=== PATIENT | male | born 1965 | race Caucasian/White ===

== ENCOUNTER 2017-01-19 18:35 | Inpatient (IN) | payer MEDICAID, OTHER ==
[~2017-01-19] VITALS: Ht 167.6 cm; Wt 78.0 kg
[~2017-01-19 18:35] MED LIST: BACIO TP; DULO60CA44 PO; GABA400C PO; LURA40 PO; TRAZ-147 PO; Trazodone Hcl PO
[2017-01-19 21:08] LABS: BASOPHILS % (AUTO) 0.5 % (0.0-2.0); HEMATOCRIT 29.3 % (41-53); HEMOGLOBIN 9.4 g/dL (13.5-17.5); LYMPHOCYTES # (AUTO) 1.4 K/uL (1.0-4.8); MEAN CORPUSCULAR HEMOGLOBIN 25.5 pg (26.0-34.0); MEAN CORPUSCULAR HGB CONC 32.1 G/dL (31.0-37.0); MEAN CORPUSCULAR VOLUME 79 fL (80-100); MONOCYTES # (AUTO) 0.5 K/uL (0.1-1.0); MONOCYTES % (AUTO) 8.5 % (2.0-9.0); NEUTROPHILS # (AUTO) 3.7 K/uL (1.8-7.7); PLATELET COUNT (AUTO) 301 K/uL (150-450); RED CELL DISTRIBUTION WIDTH 17.4 % (11.5-14.5); WHITE BLOOD COUNT (AUTO) 5.9 K/uL (4.5-11.0)
[2017-01-19 21:11] LABS: ANION GAP 8 mmol/L (8-16); CALCIUM, TOTAL 8.5 mg/dL (8.8-10.5); CARBON DIOXIDE 26 mmol/L (22-29); CHLORIDE 107 mmol/L (98-107); CREATININE 0.93 mg/dL (0.60-1.30); GLOMERULAR FILTR. RATE CALC > 60 mL/min (>60); SODIUM SERUM 141 mmol/L (136-145); UREA NITROGEN, BLOOD 17 mg/dL (7-18)
[2017-01-19 21:17] LABS: ALANINE AMINOTRANSFERASE 39 U/L (12-78); ALBUMIN 3.5 g/dL (3.4-5.0); ASPARTATE AMINOTRANSFERASE 24 U/L (15-37); BILIRUBIN,TOTAL 0.4 mg/dL (0.1-1.0)
[2017-01-19] MEDS ORDERED: LORazepam 2 MG TABLET PO ONE (21:30)
[2017-01-19] MEDS ORDERED: QUEtiapine FUMARATE 100 MG TABLET PO ONE (21:30)
[2017-01-19] MEDS ORDERED: HALOPERIDOL 5 MG TABLET PO PRN (21:30)
[2017-01-19] MEDS ORDERED: ZOLPIDEM TARTRATE 10 MG TABLET PO PRN (21:30)
[2017-01-19] MEDS ORDERED: DiphenhydrAMINE HCL 25 MG CAPSULE PO ONE (21:30)
[2017-01-19 22:15] LABS: RBC MORPHOLOGY COMMENT ABNORMAL RBC MORPH
[2017-01-20 01:01] VITALS: BP 115/75
[2017-01-20 01:04] VITALS: BP 115/75
[2017-01-20 01:06] LABS: APPEARANCE,URINE CLEAR (CLEAR); GLUCOSE, URINE (UA) NEGATIVE (NEGATIVE); KETONES,URINE NEGATIVE (NEGATIVE); LEUKOCYTE ESTERASE ,URINE NEGATIVE (NEGATIVE); OCCULT BLOOD,URINE NEGATIVE (NEGATIVE); PH,URINE 5.5 (5.0-8.0); PROTEIN,URINE NEGATIVE (NEGATIVE)
[2017-01-20 01:08] LABS: ADD UA MICROSCOPIC NO
[2017-01-20] MEDS ORDERED: INFLUENZA VIRUS VACCINE QVS 2017-18 (3YR+)/PF 60 MCG/0.5 ML SYRINGE IM ONE (01:45)
[2017-01-20 06:12] LABS: HEMOGLOBIN A1C 6.4 % (4.5-6.2)
[2017-01-20 06:22] LABS: CHOL/HDL RATIO 6.3 (4.2-7.3)
[2017-01-20 08:00] VITALS: BP 150/80
[2017-01-20] MEDS ORDERED: DEXTROSE 50%-WATER 25 GM/50 ML SYRINGE IVP PRN (08:45)
[2017-01-20] MEDS: CEPHALEXIN MONOHYDRATE 500 MG CAPSULE PO SCH ×4 (08:46→20:31)
[2017-01-20] MEDS: LORazepam 2 MG TABLET PO PRN (08:46)
[2017-01-20 16:15] VITALS: BP 153/86
[2017-01-20 17:22] LABS: GLUCOSE,POINT OF CARE 115 MG/DL (70-110)
[2017-01-20] MEDS: QUEtiapine FUMARATE 200 MG TABLET PO SCH (20:31)
[2017-01-21 05:34] VITALS: BP 129/74
[2017-01-21 06:12] LABS: GLUCOSE,POINT OF CARE 96 MG/DL (70-110)
[2017-01-21] MEDS: INSULIN ASPART 100 UNITS/ML SQ PRN (07:01)
[2017-01-21] MEDS: MetFORMIN HCL 500 MG TABLET PO SCH (07:01)
[2017-01-21 08:26] VITALS: BP 139/70
[2017-01-21] MEDS: CEPHALEXIN MONOHYDRATE 500 MG CAPSULE PO SCH ×4 (08:36→20:41)
[2017-01-21] MEDS: OMEPRAZOLE 20 MG CAPSULE PO SCH (12:10)
[2017-01-21 16:40] VITALS: BP 132/76
[2017-01-21 17:33] LABS: GLUCOSE,POINT OF CARE 107 MG/DL (70-110)
[2017-01-21] MEDS: QUEtiapine FUMARATE 200 MG TABLET PO SCH (20:41)
[2017-01-22 05:39] LABS: GLUCOSE COMMENT 1 Received Meds; GLUCOSE,POINT OF CARE 99 MG/DL (70-110)
[2017-01-22] MEDS: MetFORMIN HCL 500 MG TABLET PO SCH (06:41)
[2017-01-22] MEDS: INSULIN ASPART 100 UNITS/ML SQ PRN (06:41)
[2017-01-22] MEDS: OMEPRAZOLE 20 MG CAPSULE PO SCH (09:13)
[2017-01-22] MEDS: CEPHALEXIN MONOHYDRATE 500 MG CAPSULE PO SCH ×4 (09:13→21:12)
[2017-01-22 10:29] VITALS: BP 122/75
[2017-01-22] MEDS: ACETAMINOPHEN 325 MG TABLET PO PRN (10:31)
[2017-01-22 16:24] VITALS: BP 130/84
[2017-01-22 17:12] LABS: GLUCOSE,POINT OF CARE 112 MG/DL (70-110)
[2017-01-22] MEDS: QUEtiapine FUMARATE 300 MG TABLET PO SCH (21:12)
[2017-01-23 05:39] VITALS: BP 111/66
[2017-01-23 06:28] LABS: GLUCOSE,POINT OF CARE 108 MG/DL (70-110)
[2017-01-23] MEDS: INSULIN ASPART 100 UNITS/ML SQ PRN (06:51)
[2017-01-23] MEDS: MetFORMIN HCL 500 MG TABLET PO SCH (07:10)
[2017-01-23 08:00] VITALS: BP 106/69
[2017-01-23] MEDS: OMEPRAZOLE 20 MG CAPSULE PO SCH (09:25)
[2017-01-23 17:18] LABS: GLUCOSE COMMENT 1 FASTING; GLUCOSE,POINT OF CARE 105 MG/DL (70-110)
[2017-01-23] MEDS: QUEtiapine FUMARATE 300 MG TABLET PO SCH (20:33)
[2017-01-23 21:53] VITALS: BP 112/68
[2017-01-24 05:48] LABS: GLUCOSE,POINT OF CARE 98 MG/DL (70-110)
[2017-01-24] MEDS: MetFORMIN HCL 500 MG TABLET PO SCH (06:53)
[2017-01-24 08:05] VITALS: BP 111/75
[2017-01-24] MEDS: OMEPRAZOLE 20 MG CAPSULE PO SCH (08:10)
[2017-01-24] MEDS: LORazepam 2 MG TABLET PO PRN (08:10)
[2017-01-24] MEDS: ACETAMINOPHEN 325 MG TABLET PO PRN (08:11)
[2017-01-24 16:18] LABS: GLUCOSE,POINT OF CARE 112 MG/DL (70-110)
[2017-01-24 16:37] VITALS: BP 124/86
[2017-01-24] MEDS: QUEtiapine FUMARATE 300 MG TABLET PO SCH (21:03)
[2017-01-25 06:22] LABS: GLUCOSE,POINT OF CARE 97 MG/DL (70-110)
[2017-01-25] MEDS: MetFORMIN HCL 500 MG TABLET PO SCH (07:03)
[2017-01-25] MEDS: OMEPRAZOLE 20 MG CAPSULE PO SCH (08:53)
[2017-01-25 09:30] VITALS: BP 122/77
[2017-01-25] MEDS: LORazepam 2 MG TABLET PO PRN ×2 (09:47→16:06)
[2017-01-25 16:19] VITALS: BP 137/89
[2017-01-25 16:38] LABS: GLUCOSE,POINT OF CARE 102 MG/DL (70-110)
[2017-01-25] MEDS: QUEtiapine FUMARATE 300 MG TABLET PO SCH (20:09)
[2017-01-26 06:43] LABS: GLUCOSE,POINT OF CARE 99 MG/DL (70-110)
[2017-01-26] MEDS: MetFORMIN HCL 500 MG TABLET PO SCH (06:54)
[2017-01-26 08:36] VITALS: BP 142/88
[2017-01-26] MEDS: OMEPRAZOLE 20 MG CAPSULE PO SCH (09:16)
[2017-01-26] MEDS: LORazepam 2 MG TABLET PO PRN ×2 (09:16→14:30)
[2017-01-26] MEDS: ACETAMINOPHEN 325 MG TABLET PO PRN (14:31)
[2017-01-26 16:13] VITALS: BP 129/78
[2017-01-26 16:13] LABS: GLUCOSE,POINT OF CARE 103 MG/DL (70-110)
[2017-01-26] MEDS: QUEtiapine FUMARATE 300 MG TABLET PO SCH (20:14)
[2017-01-27 00:50] VITALS: BP 102/72
[2017-01-27 06:22] LABS: GLUCOSE,POINT OF CARE 116 MG/DL (70-110)
[2017-01-27] MEDS: MetFORMIN HCL 500 MG TABLET PO SCH (07:01)
[2017-01-27 08:36] VITALS: BP 129/88
[2017-01-27] MEDS: OMEPRAZOLE 20 MG CAPSULE PO SCH (09:10)
[2017-01-27] MEDS: LORazepam 2 MG TABLET PO PRN (09:12)
[2017-01-27] MEDS: ACETAMINOPHEN 325 MG TABLET PO PRN (09:12)
[2017-01-27 09:21] VITALS: BP 129/84
[2017-01-27] MEDS ORDERED: METF500T4 PO (10:04)
[2017-01-27] MEDS ORDERED: OMEP20 PO (10:04)
[2017-01-27] MEDS ORDERED: QUET300T2 PO (10:05)
== END 2017-01-27 12:15 | disposition home or self-care (01) | DRG 750 ==
LOC: EMS 18:36 → 3EI 23:00
DX: F20.0 Paranoid schizophrenia (principal); E11.9 Type 2 diabetes mellitus without complications; F32.9 Major depressive disorder, single episode, unspecified; B19.20 Unspecified viral hepatitis C without hepatic coma; E78.5 Hyperlipidemia, unspecified; L03.113 Cellulitis of right upper limb; K21.9 Gastro-esophageal reflux disease without esophagitis; M19.90 Unspecified osteoarthritis, unspecified site; Z79.899 Other long term (current) drug therapy; Z88.8 Allergy status to other drugs, medicaments and biological substances; Z79.84 Long term (current) use of oral hypoglycemic drugs; Z87.891 Personal history of nicotine dependence; Z82.0 Family history of epilepsy and other diseases of the nervous system; Z82.49 Family history of ischemic heart disease and other diseases of the circulatory system; Z28.21 Immunization not carried out because of patient refusal
CPT/HCPCS: 82962; 83036; 99285; G0480

== ENCOUNTER 2017-02-10 10:47 | Inpatient (IN) | payer MEDICAID, OTHER ==
[~2017-02-10] VITALS: Ht 167.6 cm; Wt 76.7 kg
[~2017-02-10 10:47] MED LIST changes: -BACIO TP; -DULO60CA44 PO; -GABA400C PO; -LURA40 PO; +METF500T4 PO; +OMEP20 PO; +QUET300T2 PO; -TRAZ-147 PO; -Trazodone Hcl PO
[2017-02-10] MEDS ORDERED: OXYC-38 PO (10:52)
[2017-02-10] MEDS ORDERED: HALOPERIDOL 5 MG TABLET PO ONE (11:00)
[2017-02-10] MEDS ORDERED: LORazepam 2 MG TABLET PO ONE (11:00)
[2017-02-10 11:11] LABS: BASOPHILS # (AUTO) 0.03 K/uL (0.00-0.20); BASOPHILS % (AUTO) 0.4 % (0.0-2.0); EOSINOPHILS # (AUTO) 0.15 K/uL (0.00-0.70); EOSINOPHILS % (AUTO) 2.17 % (1.0-6.0); HEMATOCRIT 32.9 % (41-53); HEMOGLOBIN 10.5 g/dL (13.5-17.5); LYMPHOCYTES # (AUTO) 0.9 K/uL (1.0-4.8); LYMPHOCYTES % (AUTO) 13.7 % (22.0-44.0); MEAN CORPUSCULAR HEMOGLOBIN 25.4 pg (26.0-34.0); MEAN CORPUSCULAR HGB CONC 31.9 G/dL (31.0-37.0); MEAN CORPUSCULAR VOLUME 80 fL (80-100); MONOCYTES # (AUTO) 0.4 K/uL (0.1-1.0); MONOCYTES % (AUTO) 5.9 % (2.0-9.0); NEUTROPHILS # (AUTO) 5.3 K/uL (1.8-7.7); NEUTROPHILS % (AUTO) 77.8 % (40.0-70.0); PLATELET COUNT (AUTO) 384 K/uL (150-450); RED BLOOD CELL COUNT(AUTO) 4.13 MIL/uL (4.50-5.90); RED CELL DISTRIBUTION WIDTH 18.6 % (11.5-14.5); WHITE BLOOD COUNT (AUTO) 6.9 K/uL (4.5-11.0)
[2017-02-10 11:12] LABS: GLUCOSE,POINT OF CARE 121 MG/DL (70-110)
[2017-02-10 11:16] LABS: RBC MORPHOLOGY COMMENT ABNORMAL RBC MORPH
[2017-02-10 11:22] LABS: ANION GAP 6 mmol/L (8-16); CALCIUM, TOTAL 9.3 mg/dL (8.8-10.5); CARBON DIOXIDE 29 mmol/L (22-29); CHLORIDE 102 mmol/L (98-107); CREATININE 0.88 mg/dL (0.60-1.30); GLOMERULAR FILTR. RATE CALC > 60 mL/min (>60); POTASSIUM 4.1 mmol/L (3.5-5.1); SODIUM SERUM 137 mmol/L (136-145); UREA NITROGEN, BLOOD 10 mg/dL (7-18)
[2017-02-10 11:28] LABS: ALANINE AMINOTRANSFERASE 56 U/L (12-78); ALBUMIN 3.7 g/dL (3.4-5.0); ASPARTATE AMINOTRANSFERASE 37 U/L (15-37); BILIRUBIN,TOTAL 0.4 mg/dL (0.1-1.0); TOTAL PROTEIN, SERUM 7.5 g/dL (6.4-8.2)
[2017-02-10 13:14] VITALS: BP 132/89
[2017-02-10] MEDS ORDERED: DEXTROSE 50%-WATER 25 GM/50 ML SYRINGE IVP PRN (13:45)
[2017-02-10] MEDS ORDERED: INFLUENZA VIRUS VACCINE QVS 2017-18 (3YR+)/PF 60 MCG/0.5 ML SYRINGE IM ONE (14:15)
[2017-02-10 17:32] LABS: GLUCOSE,POINT OF CARE 123 MG/DL (70-110)
[2017-02-10 19:38] VITALS: BP 135/85
[2017-02-10] MEDS: QUEtiapine FUMARATE 300 MG TABLET PO SCH (21:14)
[2017-02-10] MEDS: ZOLPIDEM TARTRATE 10 MG TABLET PO PRN (21:32)
[2017-02-11 06:07] LABS: GLUCOSE,POINT OF CARE 111 MG/DL (70-110)
[2017-02-11] MEDS: HALOPERIDOL 5 MG TABLET PO PRN (07:52)
[2017-02-11] MEDS: LORazepam 2 MG TABLET PO PRN ×2 (07:52→17:12)
[2017-02-11 08:59] VITALS: BP 147/88
[2017-02-11 16:38] VITALS: BP 133/84
[2017-02-11 17:18] LABS: GLUCOSE,POINT OF CARE 113 MG/DL (70-110)
[2017-02-11] MEDS: QUEtiapine FUMARATE 300 MG TABLET PO SCH (21:03)
[2017-02-12 05:48] LABS: GLUCOSE COMMENT 1 Received Meds; GLUCOSE,POINT OF CARE 106 MG/DL (70-110)
[2017-02-12] MEDS: INSULIN ASPART 100 UNITS/ML SQ PRN (06:46)
[2017-02-12] MEDS: LORazepam 2 MG TABLET PO PRN ×2 (07:42→16:19)
[2017-02-12] MEDS: HALOPERIDOL 5 MG TABLET PO PRN (07:42)
[2017-02-12] MEDS: ACETAMINOPHEN 325 MG TABLET PO PRN (07:42)
[2017-02-12 08:38] VITALS: BP 108/71
[2017-02-12 08:42] VITALS: BP 108/71
[2017-02-12 16:22] LABS: GLUCOSE,POINT OF CARE 103 MG/DL (70-110)
[2017-02-12 16:42] VITALS: BP 110/75
[2017-02-12] MEDS: QUEtiapine FUMARATE 300 MG TABLET PO SCH (20:43)
[2017-02-12] MEDS: ZOLPIDEM TARTRATE 10 MG TABLET PO PRN (21:53)
[2017-02-13 06:22] LABS: GLUCOSE,POINT OF CARE 111 MG/DL (70-110)
[2017-02-13 08:30] VITALS: BP 131/83
[2017-02-13] MEDS: LORazepam 2 MG TABLET PO PRN ×3 (08:57→17:08)
[2017-02-13] MEDS: ACETAMINOPHEN 325 MG TABLET PO PRN (08:57)
[2017-02-13 16:00] VITALS: BP 137/91
[2017-02-13] MEDS: HALOPERIDOL 5 MG TABLET PO PRN (16:07)
[2017-02-13 16:13] LABS: GLUCOSE,POINT OF CARE 109 MG/DL (70-110)
[2017-02-13] MEDS: QUEtiapine FUMARATE 300 MG TABLET PO SCH (21:34)
[2017-02-14 05:58] LABS: GLUCOSE,POINT OF CARE 93 MG/DL (70-110)
[2017-02-14 08:10] VITALS: BP 125/78
[2017-02-14] MEDS: HALOPERIDOL 5 MG TABLET PO PRN ×2 (09:23→14:38)
[2017-02-14] MEDS: LORazepam 2 MG TABLET PO PRN ×2 (09:23→14:38)
[2017-02-14] MEDS: ARIPiprazole 10 MG TABLET PO SCH (11:12)
[2017-02-14] MEDS: ACETAMINOPHEN 325 MG TABLET PO PRN (14:11)
[2017-02-14] MEDS ORDERED: FLUTICASONE PROPIONATE 50 MCG/SPRAY 16 GM NASAL SPRAY NASAL PRN (14:15)
[2017-02-14 16:58] LABS: GLUCOSE,POINT OF CARE 114 MG/DL (70-110)
[2017-02-14 19:34] VITALS: BP 109/71
[2017-02-14] MEDS: QUEtiapine FUMARATE 300 MG TABLET PO SCH (21:02)
[2017-02-15 05:48] LABS: GLUCOSE,POINT OF CARE 108 MG/DL (70-110)
[2017-02-15] MEDS: ARIPiprazole 10 MG TABLET PO SCH (08:56)
[2017-02-15] MEDS: ACETAMINOPHEN 325 MG TABLET PO PRN (08:57)
[2017-02-15 09:20] VITALS: BP 113/79
[2017-02-15] MEDS: HALOPERIDOL 5 MG TABLET PO PRN ×2 (13:22→18:00)
[2017-02-15] MEDS: LORazepam 2 MG TABLET PO PRN ×2 (13:22→18:00)
[2017-02-15 16:32] LABS: GLUCOSE,POINT OF CARE 92 MG/DL (70-110)
[2017-02-15 16:46] VITALS: BP 116/72
[2017-02-15] MEDS: QUEtiapine FUMARATE 300 MG TABLET PO SCH (21:13)
[2017-02-16 02:45] VITALS: BP 136/89
[2017-02-16 05:58] LABS: GLUCOSE,POINT OF CARE 103 MG/DL (70-110)
[2017-02-16] MEDS: INSULIN ASPART 100 UNITS/ML SQ PRN (06:47)
[2017-02-16] MEDS: LORazepam 2 MG TABLET PO PRN (08:21)
[2017-02-16] MEDS: ARIPiprazole 10 MG TABLET PO SCH (08:21)
[2017-02-16 08:41] VITALS: BP 125/92
[2017-02-16] MEDS ORDERED: ARIP10TA8 PO (08:56)
== END 2017-02-16 10:20 | disposition home or self-care (01) | DRG 750 ==
LOC: EMS 10:49 → 3EI 12:19
DX: F20.0 Paranoid schizophrenia (principal); R45.851 Suicidal ideations; Q78.0 Osteogenesis imperfecta; E11.9 Type 2 diabetes mellitus without complications; B19.20 Unspecified viral hepatitis C without hepatic coma; D64.9 Anemia, unspecified; K21.9 Gastro-esophageal reflux disease without esophagitis; M19.90 Unspecified osteoarthritis, unspecified site; M54.9 Dorsalgia, unspecified; Z87.891 Personal history of nicotine dependence; Z88.6 Allergy status to analgesic agent; Z79.899 Other long term (current) drug therapy; Z82.0 Family history of epilepsy and other diseases of the nervous system; Z82.49 Family history of ischemic heart disease and other diseases of the circulatory system
CPT/HCPCS: 82962; 83036; 87081; 99285; G0480

== ENCOUNTER 2017-02-17 23:17 | Inpatient (IN) | payer MEDICAID ==
[~2017-02-17] VITALS: Ht 167.6 cm; Wt 76.9 kg
[~2017-02-17 23:17] MED LIST changes: +ARIP10TA8 PO; -METF500T4 PO; -OMEP20 PO
[2017-02-18] MEDS ORDERED: DiphenhydrAMINE HCL 25 MG CAPSULE PO ONE (00:30)
[2017-02-18] MEDS ORDERED: LORazepam 2 MG TABLET PO ONE (00:30)
[2017-02-18] MEDS ORDERED: HALOPERIDOL 5 MG TABLET PO ONE (00:30)
[2017-02-18] MEDS ORDERED: HALOPERIDOL 5 MG TABLET PO PRN (01:30)
[2017-02-18 01:42] LABS: GLUCOSE,POINT OF CARE 109 MG/DL (70-110)
[2017-02-18 02:03] LABS: ANION GAP 6 mmol/L (8-16); BASOPHILS % (AUTO) 0.4 % (0.0-2.0); CALCIUM, TOTAL 9.1 mg/dL (8.8-10.5); CARBON DIOXIDE 28 mmol/L (22-29); CHLORIDE 104 mmol/L (98-107); CREATININE 1.13 mg/dL (0.60-1.30); EOSINOPHILS % (AUTO) 4.1 % (1.0-6.0); GLOMERULAR FILTR. RATE CALC > 60 mL/min (>60); HEMATOCRIT 32.4 % (41-53); HEMOGLOBIN 10.6 g/dL (13.5-17.5); LYMPHOCYTES # (AUTO) 1.6 K/uL (1.0-4.8); LYMPHOCYTES % (AUTO) 19.8 % (22.0-44.0); MEAN CORPUSCULAR HEMOGLOBIN 25.9 pg (26.0-34.0); MEAN CORPUSCULAR HGB CONC 32.6 G/dL (31.0-37.0); MEAN CORPUSCULAR VOLUME 79 fL (80-100); MONOCYTES # (AUTO) 0.4 K/uL (0.1-1.0); MONOCYTES % (AUTO) 5.5 % (2.0-9.0); NEUTROPHILS # (AUTO) 5.7 K/uL (1.8-7.7); NEUTROPHILS % (AUTO) 70.2 % (40.0-70.0); PLATELET COUNT (AUTO) 387 K/uL (150-450); POTASSIUM 4.9 mmol/L (3.5-5.1); RED BLOOD CELL COUNT(AUTO) 4.07 MIL/uL (4.50-5.90); RED CELL DISTRIBUTION WIDTH 17.9 % (11.5-14.5); SODIUM SERUM 138 mmol/L (136-145); UREA NITROGEN, BLOOD 22 mg/dL (7-18); WHITE BLOOD COUNT (AUTO) 8.1 K/uL (4.5-11.0)
[2017-02-18 02:09] LABS: ALANINE AMINOTRANSFERASE 42 U/L (12-78); ALBUMIN 3.5 g/dL (3.4-5.0); BILIRUBIN,TOTAL 0.3 mg/dL (0.1-1.0); TOTAL PROTEIN, SERUM 6.7 g/dL (6.4-8.2)
[2017-02-18 02:22] LABS: ASPARTATE AMINOTRANSFERASE 25 U/L (15-37)
[2017-02-18 03:23] VITALS: BP 127/83
[2017-02-18] MEDS ORDERED: INFLUENZA VIRUS VACCINE QVS 2017-18 (3YR+)/PF 60 MCG/0.5 ML SYRINGE IM ONE (03:45)
[2017-02-18] MEDS ORDERED: PNEUMOCOCCAL VACCINE POLYVALENT 0.5 ML VIAL [PPSV23] IM ONE (03:45)
[2017-02-18 04:38] LABS: APPEARANCE,URINE CLEAR (CLEAR); GLUCOSE, URINE (UA) NEGATIVE (NEGATIVE); KETONES,URINE NEGATIVE (NEGATIVE); LEUKOCYTE ESTERASE ,URINE NEGATIVE (NEGATIVE); OCCULT BLOOD,URINE NEGATIVE (NEGATIVE); PH,URINE 5.5 (5.0-8.0); PROTEIN,URINE NEGATIVE (NEGATIVE)
[2017-02-18 04:39] LABS: ADD UA MICROSCOPIC NO
[2017-02-18] MEDS: LORazepam 2 MG TABLET PO PRN ×2 (08:12→14:03)
[2017-02-18 08:53] VITALS: BP 128/82
[2017-02-18] MEDS ORDERED: DEXTROSE 50%-WATER 25 GM/50 ML SYRINGE IVP PRN (12:00)
[2017-02-18 17:10] LABS: GLUCOSE,POINT OF CARE 143 MG/DL (70-110)
[2017-02-18] MEDS: INSULIN ASPART 100 UNITS/ML SQ PRN (17:11)
[2017-02-18 18:13] VITALS: BP 118/60
[2017-02-18] MEDS: QUEtiapine FUMARATE 300 MG TABLET PO SCH (20:11)
[2017-02-19] MEDS: LORazepam 2 MG TABLET PO PRN (08:08)
[2017-02-19] MEDS: MetFORMIN HCL 500 MG TABLET PO SCH (08:08)
[2017-02-19 09:47] VITALS: BP 147/85
[2017-02-19] MEDS: BusPIRone HCL 5 MG TABLET PO SCH ×2 (12:15→16:10)
[2017-02-19 16:29] VITALS: BP 144/89
[2017-02-19 17:17] LABS: GLUCOSE,POINT OF CARE 112 MG/DL (70-110)
[2017-02-19] MEDS: QUEtiapine FUMARATE 300 MG TABLET PO SCH (20:17)
[2017-02-20] MEDS: LORazepam 1 MG TABLET PO PRN ×2 (04:48→08:57)
[2017-02-20 05:22] LABS: HEPATITIS Bs ANTIGEN SCREEN P Negative (Negative); HEPATITIS C AB SCREEN >11.0 s/co ratio (0.0-0.9)
[2017-02-20 06:13] LABS: GLUCOSE,POINT OF CARE 98 MG/DL (70-110)
[2017-02-20] MEDS: FLUTICASONE PROPIONATE 50 MCG/SPRAY 16 GM NASAL SPRAY NASAL PRN (06:14)
[2017-02-20] MEDS: BusPIRone HCL 5 MG TABLET PO SCH ×3 (07:58→16:09)
[2017-02-20 09:17] VITALS: BP 137/81
[2017-02-20 17:27] LABS: GLUCOSE,POINT OF CARE 92 MG/DL (70-110)
[2017-02-20 17:38] VITALS: BP 128/89
[2017-02-20] MEDS: QUEtiapine FUMARATE 300 MG TABLET PO SCH (21:14)
[2017-02-21 03:46] VITALS: BP 130/82
[2017-02-21] MEDS: LORazepam 1 MG TABLET PO PRN ×3 (04:01→12:44)
[2017-02-21 06:22] LABS: GLUCOSE,POINT OF CARE 131 MG/DL (70-110)
[2017-02-21] MEDS: INSULIN ASPART 100 UNITS/ML SQ PRN (06:59)
[2017-02-21] MEDS: FLUTICASONE PROPIONATE 50 MCG/SPRAY 16 GM NASAL SPRAY NASAL PRN ×2 (08:15→16:16)
[2017-02-21] MEDS: MetFORMIN HCL 500 MG TABLET PO SCH (08:16)
[2017-02-21] MEDS: BusPIRone HCL 5 MG TABLET PO SCH ×3 (08:16→16:17)
[2017-02-21 09:08] VITALS: BP 125/84
[2017-02-21 16:23] LABS: GLUCOSE COMMENT 1 FASTING; GLUCOSE,POINT OF CARE 92 MG/DL (70-110)
[2017-02-21 18:20] VITALS: BP 144/96
[2017-02-21] MEDS: ZOLPIDEM TARTRATE 10 MG TABLET PO PRN (20:06)
[2017-02-21] MEDS: QUEtiapine FUMARATE 300 MG TABLET PO SCH (20:06)
[2017-02-22 06:17] VITALS: BP 122/81
[2017-02-22] MEDS: FLUTICASONE PROPIONATE 50 MCG/SPRAY 16 GM NASAL SPRAY NASAL PRN ×2 (06:17→20:46)
[2017-02-22 06:23] LABS: GLUCOSE,POINT OF CARE 94 MG/DL (70-110)
[2017-02-22] MEDS: INSULIN ASPART 100 UNITS/ML SQ PRN (06:58)
[2017-02-22 08:59] VITALS: BP 139/83
[2017-02-22] MEDS: BusPIRone HCL 5 MG TABLET PO SCH ×3 (09:01→16:30)
[2017-02-22 13:51] LABS: GLUCOSE,POINT OF CARE 113 MG/DL (70-110)
[2017-02-22 13:51] LABS: GLUCOSE,POINT OF CARE 102 MG/DL (70-110)
[2017-02-22 16:15] VITALS: BP 144/81
[2017-02-22 16:43] LABS: GLUCOSE COMMENT 1 Received Meds; GLUCOSE,POINT OF CARE 110 MG/DL (70-110)
[2017-02-22] MEDS: ZOLPIDEM TARTRATE 10 MG TABLET PO PRN (20:45)
[2017-02-22] MEDS: QUEtiapine FUMARATE 300 MG TABLET PO SCH (20:45)
[2017-02-22 21:53] LABS: GLUCOSE,POINT OF CARE 106 MG/DL (70-110)
[2017-02-23 04:11] VITALS: BP 122/82
[2017-02-23] MEDS: LORazepam 1 MG TABLET PO PRN (05:22)
[2017-02-23 05:23] VITALS: BP 143/93
[2017-02-23 06:22] LABS: GLUCOSE,POINT OF CARE 88 MG/DL (70-110)
[2017-02-23] MEDS: BusPIRone HCL 5 MG TABLET PO SCH (09:05)
[2017-02-23] MEDS: MetFORMIN HCL 500 MG TABLET PO SCH (09:05)
[2017-02-23] MEDS ORDERED: BUSP5TAB20 PO (10:02)
[2017-02-23] MEDS ORDERED: METF500T4 PO (10:07)
== END 2017-02-23 11:30 | disposition home or self-care (01) | DRG 750 ==
LOC: EMS 23:18 → 3EI 02-18 00:59
DX: F20.0 Paranoid schizophrenia (principal); R45.851 Suicidal ideations; E11.9 Type 2 diabetes mellitus without complications; I10 Essential (primary) hypertension; D64.9 Anemia, unspecified; F32.9 Major depressive disorder, single episode, unspecified; B19.20 Unspecified viral hepatitis C without hepatic coma; M51.36 Other intervertebral disc degeneration, lumbar region; M19.90 Unspecified osteoarthritis, unspecified site; Z79.899 Other long term (current) drug therapy; Z82.0 Family history of epilepsy and other diseases of the nervous system; Z82.49 Family history of ischemic heart disease and other diseases of the circulatory system; Z87.891 Personal history of nicotine dependence; Z98.1 Arthrodesis status; Z28.21 Immunization not carried out because of patient refusal; Z88.3 Allergy status to other anti-infective agents; Z88.5 Allergy status to narcotic agent
CPT/HCPCS: 80074; 80307; 82105; 82962; 83036; 87081; 99285; G0480

== ENCOUNTER 2018-11-13 22:48 | Inpatient (IN) | payer MEDICAID, OTHER ==
[~2018-11-13] VITALS: Ht 167.6 cm; Wt 73.5 kg
[~2018-11-13 22:48] MED LIST changes: -ARIP10TA8 PO; +BUSP5TAB20 PO; +METF-960 PO
[2018-11-13 23:20] LABS: GLUCOSE,POINT OF CARE 101 MG/DL (70-110)
[2018-11-13 23:40] LABS: BASOPHILS % (AUTO) 0.4 % (0.0-2.0); EOSINOPHILS % (AUTO) 3.7 % (1.0-6.0); HEMOGLOBIN 14.4 g/dL (13.5-17.5); LYMPHOCYTES # (AUTO) 1.5 K/uL (1.0-4.8); LYMPHOCYTES % (AUTO) 14.3 % (22.0-44.0); MEAN CORPUSCULAR HEMOGLOBIN 32.1 pg (26.0-34.0); MEAN CORPUSCULAR HGB CONC 34.4 G/dL (31.0-37.0); MEAN CORPUSCULAR VOLUME 93 fL (80-100); MONOCYTES % (AUTO) 9.5 % (2.0-9.0); NEUTROPHILS # (AUTO) 7.7 K/uL (1.8-7.7); NEUTROPHILS % (AUTO) 72.1 % (40.0-70.0); PLATELET COUNT (AUTO) 246 K/uL (150-450); RED CELL DISTRIBUTION WIDTH 13.2 % (11.5-14.5)
[2018-11-13 23:49] LABS: ANION GAP 5 mmol/L (8-16); CALCIUM, TOTAL 9.4 mg/dL (8.8-10.5); CARBON DIOXIDE 31 mmol/L (22-29); CHLORIDE 101 mmol/L (98-107); CREATININE 0.91 mg/dL (0.60-1.30); GLOMERULAR FILTR. RATE CALC > 60 mL/min (>60); GLUCOSE,RANDOM 103 mg/dL (70-110); POTASSIUM 3.5 mmol/L (3.5-5.1); SODIUM SERUM 137 mmol/L (136-145); UREA NITROGEN, BLOOD 10 mg/dL (7-18)
[2018-11-13 23:53] LABS: AMPHET/METH SCREEN,URINE POSITIVE (NEGATIVE); BARBITURATE SCREEN, URINE NEGATIVE (NEGATIVE); BENZODIAZEPINES SCREEN,URINE NEGATIVE (NEGATIVE); CANNABINOID SCREEN,URINE NEGATIVE (NEGATIVE); COCAINE SCREEN,URINE POSITIVE (NEGATIVE); METHADONE SCREEN, URINE NEGATIVE (NEGATIVE); OPIATE SCREEN,URINE NEGATIVE (NEGATIVE)
[2018-11-13 23:55] LABS: ALANINE AMINOTRANSFERASE 31 U/L (12-78); ALBUMIN 3.7 g/dL (3.4-5.0); ALKALINE PHOSPHATASE 104 U/L (46-116); ASPARTATE AMINOTRANSFERASE 41 U/L (15-37); BILIRUBIN,TOTAL 0.7 mg/dL (0.1-1.0); TOTAL PROTEIN, SERUM 6.6 g/dL (6.4-8.2)
[2018-11-14] MEDS ORDERED: QUEtiapine FUMARATE 100 MG TABLET PO ONE
[2018-11-14] MEDS ORDERED: LORazepam 2 MG TABLET PO ONE
[2018-11-14 00:01] LABS: PHENCYCLIDINE SCREEN,URINE NEGATIVE (NEGATIVE)
[2018-11-14] MEDS ORDERED: ZOLPIDEM TARTRATE 10 MG TABLET PO PRN (00:45)
[2018-11-14] MEDS ORDERED: LORazepam 2 MG TABLET PO PRN (00:45)
[2018-11-14] MEDS ORDERED: HALOPERIDOL 5 MG TABLET PO PRN (00:45)
[2018-11-14 02:57] LABS: APPEARANCE,URINE CLEAR (CLEAR); BILIRUBIN,URINE NEGATIVE (NEGATIVE); GLUCOSE, URINE (UA) NEGATIVE (NEGATIVE); KETONES,URINE NEGATIVE (NEGATIVE); LEUKOCYTE ESTERASE ,URINE NEGATIVE (NEGATIVE); NITRATE,URINE NEGATIVE (NEGATIVE); OCCULT BLOOD,URINE NEGATIVE (NEGATIVE); PH,URINE 6.5 (5.0-8.0); PROTEIN,URINE NEGATIVE (NEGATIVE)
[2018-11-14 03:06] VITALS: BP 117/92
[2018-11-14 03:20] LABS: GLUCOMETER DEV NAME(LOC) BV2S.; GLUCOSE,POINT OF CARE 124 MG/DL (70-110)
[2018-11-14] MEDS ORDERED: PNEUMOCOCCAL VACCINE POLYVALENT 0.5 ML VIAL [PPSV23] IM ONE (05:30)
[2018-11-14] MEDS ORDERED: ACETAMINOPHEN 325 MG TABLET PO PRN (20:45)
[2018-11-14] MEDS ORDERED: ALBUTEROL SULFATE HFA 90 MCG/PUFF 8 GM INHALER IH PRN (20:45)
[2018-11-14] MEDS ORDERED: PETROLATUM,WHITE 28 GM JELLY TP PRN (20:45)
[2018-11-14] MEDS ORDERED: NICOTINE 14 MG/24 HOUR PATCH TD PRN (20:45)
[2018-11-14] MEDS ORDERED: DOCUSATE SODIUM 100 MG CAPSULE PO PRN (20:45)
[2018-11-14] MEDS ORDERED: GuaiFENesin/D-METHORPHAN [SUGAR-FREE] 200-20MG/10 ML SYRUP UDCUP PO PRN (20:45)
[2018-11-14] MEDS ORDERED: IBUPROFEN 400 MG TABLET PO PRN (20:45)
[2018-11-14] MEDS ORDERED: CloNIDine HCL 0.1 MG TABLET PO PRN (20:45)
[2018-11-14] MEDS ORDERED: LOPERAMIDE HCL 2 MG CAPSULE PO PRN (20:45)
[2018-11-14] MEDS ORDERED: MAGNESIUM HYDROXIDE SUSPENSION 30 ML UDCUP PO PRN (20:45)
[2018-11-14] MEDS ORDERED: MAG HYDROX/AL HYDROX/SIMETH ES 30 ML SUSPENSION UDCUP PO PRN (20:45)
[2018-11-14] MEDS ORDERED: ONDANSETRON HCL 4 MG TABLET PO PRN (20:45)
[2018-11-15 00:14] VITALS: BP 107/82
[2018-11-15 06:31] LABS: GLUCOMETER DEV NAME(LOC) BV2S.; GLUCOSE,POINT OF CARE 92 MG/DL (70-110)
[2018-11-15] MEDS: MetFORMIN HCL 500 MG TABLET PO SCH (07:05)
[2018-11-15 07:36] LABS: BASOPHILS % (AUTO) 0.4 % (0.0-2.0); EOSINOPHILS % (AUTO) 4.8 % (1.0-6.0); HEMATOCRIT 41.3 % (41-53); HEMOGLOBIN 13.9 g/dL (13.5-17.5); LYMPHOCYTES # (AUTO) 1.6 K/uL (1.0-4.8); LYMPHOCYTES % (AUTO) 25.6 % (22.0-44.0); MEAN CORPUSCULAR HEMOGLOBIN 32.2 pg (26.0-34.0); MEAN CORPUSCULAR HGB CONC 33.7 G/dL (31.0-37.0); MEAN CORPUSCULAR VOLUME 95 fL (80-100); MONOCYTES # (AUTO) 0.6 K/uL (0.1-1.0); MONOCYTES % (AUTO) 8.9 % (2.0-9.0); NEUTROPHILS # (AUTO) 3.8 K/uL (1.8-7.7); NEUTROPHILS % (AUTO) 60.3 % (40.0-70.0); PLATELET COUNT (AUTO) 224 K/uL (150-450); RED BLOOD CELL COUNT(AUTO) 4.33 MIL/uL (4.50-5.90); RED CELL DISTRIBUTION WIDTH 13.2 % (11.5-14.5)
[2018-11-15 07:51] LABS: HEMOGLOBIN A1C 5.7 % (4.5-6.2)
[2018-11-15 08:08] VITALS: BP 130/71
[2018-11-15 08:08] LABS: ALANINE AMINOTRANSFERASE 25 U/L (12-78); ALKALINE PHOSPHATASE 88 U/L (46-116); ANION GAP 5 mmol/L (8-16); ASPARTATE AMINOTRANSFERASE 21 U/L (15-37); BILIRUBIN,TOTAL 0.7 mg/dL (0.1-1.0); CALCIUM, TOTAL 9.1 mg/dL (8.8-10.5); CARBON DIOXIDE 32 mmol/L (22-29); CHLORIDE 103 mmol/L (98-107); CHOL/HDL RATIO 3.9 (4.2-7.3); CHOLESTEROL 118 mg/dL (131-200); CREATININE 0.79 mg/dL (0.60-1.30); GLOMERULAR FILTR. RATE CALC > 60 mL/min (>60); GLUCOSE,RANDOM 93 mg/dL (70-110); HDL CHOLESTEROL 30 mg/dL (40-60); LDL CHOL (CALC.) 64 mg/dL (0-130); POTASSIUM 3.7 mmol/L (3.5-5.1); SODIUM SERUM 140 mmol/L (136-145); THYROID STIMULATING HORMONE 0.63 uIU/mL (0.36-3.74); TOTAL PROTEIN, SERUM 5.9 g/dL (6.4-8.2); TRIGLYCERIDES 119 mg/dL (15-150); UREA NITROGEN, BLOOD 14 mg/dL (7-18)
[2018-11-15] MEDS ORDERED: OLANZapine 5 MG TABLET PO SCH (09:00)
[2018-11-15] MEDS: FLUoxetine HCL 20 MG CAPSULE PO SCH (12:16)
[2018-11-15 16:08] VITALS: BP 111/68
[2018-11-15] MEDS: OLANZapine 10 MG TABLET PO SCH (16:19)
[2018-11-15 16:25] LABS: GLUCOMETER DEV NAME(LOC) BV2S.; GLUCOSE,POINT OF CARE 100 MG/DL (70-110)
[2018-11-16 06:03] VITALS: BP 120/81
[2018-11-16 06:26] LABS: GLUCOMETER DEV NAME(LOC) BV2S.; GLUCOSE,POINT OF CARE 93 MG/DL (70-110)
[2018-11-16] MEDS: MetFORMIN HCL 500 MG TABLET PO SCH (06:33)
[2018-11-16 08:02] VITALS: BP 118/81
[2018-11-16] MEDS: FLUoxetine HCL 20 MG CAPSULE PO SCH (08:42)
[2018-11-16] MEDS: OLANZapine 10 MG TABLET PO SCH ×2 (08:42→16:04)
[2018-11-16 16:34] VITALS: BP 129/75
[2018-11-17 00:37] VITALS: BP 137/96
[2018-11-17] MEDS: MetFORMIN HCL 500 MG TABLET PO SCH (07:05)
[2018-11-17] MEDS: FLUoxetine HCL 20 MG CAPSULE PO SCH (08:39)
[2018-11-17] MEDS: OLANZapine 10 MG TABLET PO SCH (08:39)
[2018-11-17] MEDS ORDERED: FLUO-191 PO (11:14)
[2018-11-17] MEDS ORDERED: OLAN10TA3 PO (11:14)
[2018-11-17] MEDS ORDERED: METF-960 PO (11:14)
== END 2018-11-17 14:26 | disposition home or self-care (01) | DRG 750 ==
LOC: EMS 22:52 → B2S 11-14 01:00
PROVIDERS: ADMIT Psychiatry & Neurology Psychiatry; ATTEND Psychiatry & Neurology Psychiatry
DX: F25.1 Schizoaffective disorder, depressive type (principal); Q78.0 Osteogenesis imperfecta; R45.851 Suicidal ideations; E11.9 Type 2 diabetes mellitus without complications; B18.2 Chronic viral hepatitis C; E78.5 Hyperlipidemia, unspecified; F10.10 Alcohol abuse, uncomplicated; F32.9 Major depressive disorder, single episode, unspecified; F41.9 Anxiety disorder, unspecified; I10 Essential (primary) hypertension; F19.10 Other psychoactive substance abuse, uncomplicated; I25.10 Atherosclerotic heart disease of native coronary artery without angina pectoris; M19.90 Unspecified osteoarthritis, unspecified site; Z87.891 Personal history of nicotine dependence; Z91.14 Patient's other noncompliance with medication regimen; Z88.8 Allergy status to other drugs, medicaments and biological substances; Z71.41 Alcohol abuse counseling and surveillance of alcoholic; Z71.51 Drug abuse counseling and surveillance of drug abuser
CPT/HCPCS: 83036; 84443; G0480

== ENCOUNTER 2018-11-30 06:58 | Emergency (ER) | payer MEDICAID, OTHER ==
[~2018-11-30] VITALS: Ht 167.6 cm; Wt 73.4 kg
[~2018-11-30 06:58] MED LIST changes: -BUSP5TAB20 PO; +FLUO-191 PO; +OLAN10TA3 PO; -QUET300T2 PO
[2018-11-30 07:25] LABS: GLUCOSE,POINT OF CARE 106 MG/DL (70-110)
[2018-11-30 09:55] VITALS: BP 120/72
[2018-11-30] MEDS ORDERED: HALOPERIDOL 5 MG TABLET PO ONE (10:15)
[2018-11-30 10:39] LABS: BASOPHILS % (AUTO) 0.6 % (0.0-2.0); EOSINOPHILS % (AUTO) 3.2 % (1.0-6.0); HEMATOCRIT 41.9 % (41-53); HEMOGLOBIN 13.7 g/dL (13.5-17.5); LYMPHOCYTES # (AUTO) 1.2 K/uL (1.0-4.8); LYMPHOCYTES % (AUTO) 16.2 % (22.0-44.0); MEAN CORPUSCULAR HEMOGLOBIN 31.6 pg (26.0-34.0); MEAN CORPUSCULAR HGB CONC 32.6 G/dL (31.0-37.0); MEAN CORPUSCULAR VOLUME 97 fL (80-100); MONOCYTES # (AUTO) 0.4 K/uL (0.1-1.0); MONOCYTES % (AUTO) 5.6 % (2.0-9.0); NEUTROPHILS # (AUTO) 5.5 K/uL (1.8-7.7); NEUTROPHILS % (AUTO) 74.4 % (40.0-70.0); PLATELET COUNT (AUTO) 231 K/uL (150-450); RED BLOOD CELL COUNT(AUTO) 4.33 MIL/uL (4.50-5.90); RED CELL DISTRIBUTION WIDTH 13.3 % (11.5-14.5)
[2018-11-30 10:49] LABS: ANION GAP 9 mmol/L (8-16); CALCIUM, TOTAL 8.6 mg/dL (8.8-10.5); CARBON DIOXIDE 26 mmol/L (22-29); CHLORIDE 107 mmol/L (98-107); CREATININE 0.66 mg/dL (0.60-1.30); GLOMERULAR FILTR. RATE CALC > 60 mL/min (>60); GLUCOSE,RANDOM 102 mg/dL (70-110); POTASSIUM 3.9 mmol/L (3.5-5.1); SODIUM SERUM 142 mmol/L (136-145); UREA NITROGEN, BLOOD 14 mg/dL (7-18)
[2018-11-30 10:55] LABS: ALANINE AMINOTRANSFERASE 19 U/L (12-78); ALBUMIN 3.6 g/dL (3.4-5.0); ALKALINE PHOSPHATASE 98 U/L (46-116); ASPARTATE AMINOTRANSFERASE 18 U/L (15-37); BILIRUBIN,TOTAL 0.7 mg/dL (0.1-1.0); TOTAL PROTEIN, SERUM 6.3 g/dL (6.4-8.2)
[2018-11-30 11:19] LABS: AMPHET/METH SCREEN,URINE NEGATIVE (NEGATIVE); BARBITURATE SCREEN, URINE NEGATIVE (NEGATIVE); BENZODIAZEPINES SCREEN,URINE NEGATIVE (NEGATIVE); CANNABINOID SCREEN,URINE NEGATIVE (NEGATIVE); COCAINE SCREEN,URINE POSITIVE (NEGATIVE); METHADONE SCREEN, URINE NEGATIVE (NEGATIVE); OPIATE SCREEN,URINE NEGATIVE (NEGATIVE)
[2018-11-30 11:24] LABS: PHENCYCLIDINE SCREEN,URINE NEGATIVE (NEGATIVE)
== END 2018-11-30 11:24 | disposition home or self-care (01) ==
LOC: EMS 07:00
DX: F20.0 Paranoid schizophrenia (principal); F31.9 Bipolar disorder, unspecified; E11.9 Type 2 diabetes mellitus without complications; I51.9 Heart disease, unspecified; Z87.891 Personal history of nicotine dependence; Z88.6 Allergy status to analgesic agent
CPT/HCPCS: 36415; 80053; 80307; 82962; 85025; 99284; G0480